=== PATIENT | female | born 1995 | race Caucasian/White ===

== ENCOUNTER 2022-07-05 19:58 | Emergency (ER) | payer SELFPAY ==
[~2022-07-05] VITALS: Ht 154.9 cm; Wt 70.3 kg
[2022-07-05] MEDS ORDERED: LORAZEPAM 1 MG TABLET ONE (22:22)
[2022-07-05] MEDS ORDERED: LORAZEPAM 1 MG TABLET PO ONE (22:30)
--- NOTE | 2022-07-05 22:46 | NUR ---
Patient discharged to home in stable condition. Written and verbal after care instructions given. Patient verbalizes understanding of instruction.
[2022-07-05 22:47] VITALS: BP 130/77
== END 2022-07-05 22:47 | disposition home or self-care (01) ==
LOC: ER 20:00
DX: F41.9 Anxiety disorder, unspecified (principal); E11.65 Type 2 diabetes mellitus with hyperglycemia
CPT/HCPCS: 82962-TC

== ENCOUNTER 2022-07-20 01:57 | Emergency (ER) | payer OTHER ==
[~2022-07-20] VITALS: Ht 154.9 cm; Wt 70.3 kg
--- NOTE | 2022-07-20 02:00 | NUR ---
Patient came in to the er c/o headache and nausea vomiting. Patient admits on using marijuana. On room air, breathing normally and unlabored. Kept comfortable, will continue to monitor accordingly.
--- NOTE | 2022-07-20 02:07 | NUR ---
DR. HAKEEM METCALF AT PT'S BEDSIDE FOR EVAL
--- NOTE | 2022-07-20 02:20 | NUR ---
BS POC ACCUCHECK 147
[2022-07-20] MEDS ORDERED: PROCHLORPERAZINE EDISYLATE 10 MG/2 ML VIAL ONE (02:22)
[2022-07-20] MEDS ORDERED: diphenhydrAMINE HCL 50 MG/ML VIAL ONE (02:22)
[2022-07-20] MEDS ORDERED: diphenhydrAMINE HCL 50 MG/ML VIAL IV ONE (02:30)
[2022-07-20] MEDS ORDERED: IV NS 0.9% 1,000 ML IV ONE (02:30)
[2022-07-20] MEDS ORDERED: PROCHLORPERAZINE EDISYLATE 10 MG/2 ML VIAL IVP ONE (02:30)
--- NOTE | 2022-07-20 03:09 | NUR ---
PT SIGNED WAIVER FORM
--- NOTE | 2022-07-20 03:13 | NUR ---
PT TAKEN TO CT VIA ROHAN Addendum: 07/20/22 at 0315 by YIN PT TAKEN TO CT VIA W/C
--- NOTE | 2022-07-20 05:30 | NUR ---
CALLED [facility]; SPOKE TO LI. ETA FOR CT REPORT IS 15 MINUTES
[2022-07-20 05:50] VITALS: BP 125/85
--- NOTE | 2022-07-20 05:50 | NUR ---
Patient discharged to home in stable condition. Written and verbal after care instructions given. Patient verbalizes understanding of instruction. IV removed. Catheter intact and site benign. Pressure and 4x4 applied to site. No bleeding noted. pt ambulatory with a steady gait
== END 2022-07-20 05:51 | disposition home or self-care (01) ==
LOC: ER 02:03
DX: R51.9 Headache, unspecified (principal); D64.9 Anemia, unspecified
CPT/HCPCS: 99284; 96374; 70450; 96361; 96375; 84703; 82962; J0780; J1200; J7030

== ENCOUNTER 2022-10-23 18:30 | Emergency (ER) | payer OTHER ==
--- NOTE | 2022-10-23 19:05 | NUR ---
CALLED IN ED WAITING ROOM, NO RESPONSE
--- NOTE | 2022-10-23 19:20 | NUR ---
CALLED TO [facility], PATIENT NOT IN WAITING ROOM
== END 2022-10-23 19:47 | disposition left against medical advice (07) ==
LOC: ER 18:34
DX: Z53.21 Procedure and treatment not carried out due to patient leaving prior to being seen by health care provider (principal)